=== PATIENT | male | born 1990 | race Caucasian/White ===

== ENCOUNTER 2016-04-23 23:15 | Emergency (ER) | payer OTHER ==
[2016-04-23 23:39] VITALS: O2SAT 98
[2016-04-23] MEDS ORDERED: TORAdol 30 mg Injection IM ONE (23:42)
[2016-04-23] MEDS ORDERED: DECADRON 10MG INJ. IM ONE (23:42)
[2016-04-23] MEDS ORDERED: Norflex 60 MG/2 ML IM ONE (23:42)
[2016-04-23] MEDS ORDERED: Norflex 60 MG/2 ML ONE (23:45)
[2016-04-23] MEDS ORDERED: TORAdol 30 mg Injection ONE (23:45)
[2016-04-23] MEDS ORDERED: DECADRON 10MG INJ. ONE (23:45)
--- NOTE | 2016-04-23 23:49 | ERPHSYRPT ---
- History of Present Illness Time Seen by Provider: 04/23/16 23:37 Source: patient Patient Subjective Stated Complaint: states that he has had increasing trouble with the lower and middle back x 1 week with constant achiness et increasing frequency of spasm that will "shoot down into the legs" - denies bowel or bladder dysfunction Triage Nursing Assessment: ambulatory to treatment area - steady gait - moves all extremities with equal strength. alert/oriented - appropriate affect. skin pwd - no rash/injury appreciated. resps spontaneous - easy - non-labored Physician History: CC: back pain Hx: 25 y/o male patient with hx of back pain chronically. He has one week hx of worsened pain shooting to legs. No N/T/W. No urinary problems. No incontinence. Has hx of prior kidney stones but that seems to have resolved. He formerly saw Dr Egan. He works at [employer]. Not a work related back problem. Pain is sharp and severe with movement. No relieved with prior dose skelaxin at home. Back Pain Location: lumbar spine Severity of Pain-Max: severe Severity of Pain-Current: severe Allergies/Adverse Reactions: No Known Drug Allergies Allergy (Unverified 04/23/16 23:18) Hx Tetanus, Diphtheria Vaccination/Date Given: Yes Hx Influenza Vaccination/Date Given: No Hx Pneumococcal Vaccination/Date Given: No Immunizations Up to Date: Yes - Review of Systems Constitutional: No Fever, No Chills Eyes: No Symptoms Cardiac: No Chest Pain Abdominal/Gastrointestinal: No Abdominal Pain Genitourinary Symptoms: No Dysuria, No Testicle Pain Musculoskeletal: Back Pain Skin: No Rash Neurological: No Headache, No Paralysis, No Parasthesia All Other Systems: Reviewed and Negative - Past Medical History Pertinent Past Medical History: Yes Cardiac History: Hypertension Respiratory History: Asthma Musculoskeletal History: Osteoarthritis Other Medical History: PULMONARY INSUFFICIENCY, ATRIAL SEPTAL DEFECT. Chronic back pain - Past Surgical History Past Surgical History: Yes Other Surgical History: tonsils and adenoids - Social History Smoking Status: Never smoker How long have you smoked: chews Exposure to second hand smoke: No Alcohol Use: Socially Drug Use: none Patient Lives Alone: No Significant Family History: no pertinent family hx - Nursing Vital Signs Temperature: 97.9 F Temperature Source: Oral Pulse Rate: 86 Respiratory Rate: 16 Blood Pressure: 149/42 Pain Intensity: 7 - Physical Exam General Appearance: alert Eye Exam: PERRL/EOMI Ears, Nose, Throat Exam: normal ENT inspection, moist mucous membranes Neck Exam: normal inspection, non-tender, supple Respiratory Exam: normal breath sounds, lungs clear Cardiovascular Exam: regular rate/rhythm, No murmur Gastrointestinal Exam: soft, No tenderness, No distention Male Genetalia Exam: normal genitalia, No testicular tenderness Back Exam: normal inspection, point tenderness (right low lumbar paraspinous) Extremity Exam: normal inspection, normal range of motion Neurologic Exam: alert, oriented x 3, cooperative, sensation nml, other (2+ patellar MSR's are equal), No motor deficits Skin Exam: warm, dry, No rash SpO2 Interpretation: normal SpO2: 98 Oxygen Delivery: Room Air - Course Nursing assessment & vital signs reviewed: Yes - Progress Progress Note: 04/23/16 23:46 IM Toradol/Norflex/Decadron given. Advised follow up. Counseled pt/family regarding: diagnosis, need for follow-up - Departure Time of Disposition: 23:46 Departure Disposition: Home Clinical Impression: Acute exacerbation of chronic low back pain Condition: Stable Critical Care Time: No Referrals: ZARI JAIMES [Primary Care Provider] - DOCTOR,NO FAMILY [NON-STAFF PHY W/O PRIVILEGES] - Instructions: Low Back Pain Additional Instructions: BACK INJURY 1. May apply moist heat frequently for relief of pain. Take care not to burn the skin. Do not use heat for more than 30 minutes at a time. 2. Try to sleep on a firm bed, flat on your back. 3. If no improvement is noticed in 2-3 days, follow up with your family physician. 4. If you notice any numbness, tingling, weakness, or problems with your bowel or bladder, you should call your family physician or return to the emergency department. Rx naproxen. Rx norflex for muscle relaxer. Warm compresses. No driving tonite or while taking norflex. Follow up with family doctor. Prescriptions: Naproxen 1 tab PO BID #20 tablet Orphenadrine Citrate 100 mg [Norflex 100 MG Tablet] 1 tab PO BID #10 tab
[2016-04-24 00:45] VITALS: BP 138/88; PULSE 54
== END 2016-04-24 00:31 | disposition home or self-care (01) ==
LOC: ED 23:15
DX: M54.5 Low back pain (principal); G89.29 Other chronic pain
CPT/HCPCS: 96372; 99283; J1100; J1885; J2360

== ENCOUNTER 2016-09-03 07:18 | Emergency (ER) | payer SELFPAY ==
--- NOTE | 2016-09-03 07:34 | ERPHSYRPT ---
- History of Present Illness Time Seen by Provider: 09/03/16 07:27 Source: patient Exam Limitations: no limitations Patient Subjective Stated Complaint: reports with chronic back pain onset "two weeks ago" - states that he began to have trouble with his "legs giving out on him" and having spasms, which caused him to come in today - denies bowel or bladder involvement Triage Nursing Assessment: wc to treatment area - unsteady/rigid gait to cart - moves all extremities with equal/rigid strength. alert/oriented - grimmacing affet. skin pwd - no rash/injury appreciated. resps non-labored - shallow per pain Physician History: States with long history of chronic back pain for 10 yrs. but noticed increase back pain past 2-3 weeks. States sharp pain in mid/low back and rad to bilat. hips. States increase standing at work with some lifting, but doesn't remember incident of injuring back. No urinary or bowel incontinence. Denies any numbness, tingling or weakness. Taking Ibuprofen 600mg two days. Timing/Duration: week(s) (2-3), intermittent Method of Injury: bending, other (Lifting and standing) Quality: sharp Back Pain Location: T-spine, lumbar spine Back Pain Radiation: buttocks Severity of Pain-Max: moderate Severity of Pain-Current: moderate Modifying Factors: Improves With: immobilization (improves), movement (worsens) Associated Symptoms: lower back pain, muscle spasms, No fever, No chills, No urinary incontinence, No loss of bowel control, No problems urinating, No dizziness, No numbness in legs/feet, No weakness, No tingling in legs/feet Previous symptoms: same symptoms as today Allergies/Adverse Reactions: No Known Drug Allergies Allergy (Unverified 04/23/16 23:18) Hx Tetanus, Diphtheria Vaccination/Date Given: Yes Hx Influenza Vaccination/Date Given: No Hx Pneumococcal Vaccination/Date Given: No Immunizations Up to Date: Yes - Review of Systems Constitutional: No Fever, No Chills Eyes: No Symptoms Ears, Nose, & Throat: No Symptoms Respiratory: No Cough, No Dyspnea Cardiac: No Symptoms, No Chest Pain, No Edema, No Syncope Abdominal/Gastrointestinal: No Symptoms, No Abdominal Pain, No Nausea, No Vomiting, No Diarrhea Genitourinary Symptoms: No Dysuria Musculoskeletal: Back Pain, No Neck Pain, No Injury, No Joint Pain, No Joint Swelling Skin: No Rash Neurological: No Dizziness, No Focal Weakness, No Paralysis, No Parasthesia, No Sensory Changes Psychological: No Symptoms Endocrine: No Symptoms All Other Systems: Reviewed and Negative - Past Medical History Pertinent Past Medical History: Yes Cardiac History: Hypertension Respiratory History: Asthma Musculoskeletal History: Osteoarthritis Other Medical History: chronic back pain - Past Surgical History Past Surgical History: Yes Other Surgical History: tonsils and adenoids - Social History Smoking Status: Never smoker How long have you smoked: chews Exposure to second hand smoke: Yes Alcohol Use: Socially Drug Use: none Patient Lives Alone: No Significant Family History: no pertinent family hx - Nursing Vital Signs Temperature: 98.0 F Temperature Source: Oral Pulse Rate: 84 Respiratory Rate: 14 Pain Intensity: 4 - Physical Exam General Appearance: no apparent distress, alert Eye Exam: PERRL/EOMI, eyes nml inspection Neck Exam: normal inspection, non-tender, supple, full range of motion, No meningismus, No midline tenderness Respiratory Exam: normal breath sounds, lungs clear, No respiratory distress Cardiovascular Exam: regular rate/rhythm, normal heart sounds Gastrointestinal Exam: soft, No tenderness, No mass Back Exam: vertebral tenderness (mid thoracic and lumbar), decreased range of motion, muscle spasm (mid thoracic and lumbar), point tenderness (mid thoracic and lumbar) Extremity Exam: normal inspection, normal range of motion, No calf tenderness, No pedal edema Peripheral Pulses: dorsalis-pedis (R): 2+, dorsalis-pedis (L): 2+ Neurologic Exam: alert, oriented x 3, cooperative, miniature set builder II-XII nml as tested, normal mood/affect, sensation nml, No motor deficits, No sensory deficit Skin Exam: normal color, warm, dry, No rash SpO2: 95 - Course Nursing assessment & vital signs reviewed: Yes - Progress Progress: improved Progress Note: 09/03/16 07:38 Pt. given Toradol with some relief of symptoms Counseled pt/family regarding: diagnosis - Departure Time of Disposition: 07:38 Departure Disposition: Home Clinical Impression: Back muscle spasm Condition: Stable Critical Care Time: No Instructions: Low Back Pain Additional Instructions: Rest, no lifting, bending or prolonged sitting/standing, Motrin 800mg every 8 hrs with food to decrease pain RX: Flexeril Return for worse back pain, numbness, tingling, weakness or any problems. Forms: Work/School Release Form Prescriptions: Cyclobenzaprine HCl [Flexeril] 10 mg PO Q8H PRN PRN #0 tablet PRN Reason: Muscle Spasms
[2016-09-03] MEDS ORDERED: TORAdol 30 mg Injection IM ONE (07:43)
[2016-09-03] MEDS ORDERED: TORAdol 30 mg Injection ONE (07:45)
[2016-09-03 08:10] VITALS: BP 101/67; PULSE 62; O2SAT 96
== END 2016-09-03 08:10 | disposition home or self-care (01) ==
LOC: ED 07:18
DX: M62.830 Muscle spasm of back (principal); M54.6 Pain in thoracic spine; M54.5 Low back pain
CPT/HCPCS: 96372; 99284; J1885

== ENCOUNTER 2017-08-26 23:46 | Emergency (ER) | payer OTHER, SELFPAY ==
[2017-08-27] MEDS ORDERED: Sodium Chloride 0.9% 1000 ML 1,000 ML IV STA (00:27)
[2017-08-27] MEDS ORDERED: TORAdol 30 mg Injection IV ONE (00:27)
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
[2017-08-27] MEDS ORDERED: TORAdol 30 mg Injection ONE (00:34)
[2017-08-27] MEDS ORDERED: Sodium Chloride 0.9% 1000 ML 1,000 ML ONE (00:34)
[2017-08-27 00:36] LABS: BASOPHIL % 0.2 % (0.0-0.4); Basophil (Absolute #) 0.02 (0-0.4); Eosinophil % 1.5 % (0.00-5.0); Eosinophil (Absolute #) 0.13 (0-0.5); Granulocytes % 59.3 % (36.0-66.0); Hemoglobin 14.5 gm/dl (12.5-18.0); Lymphocyte (Absolute #) 2.51 (1.0-4.6); Lymphocytes % 28.7 % (24.0-44.0); Mean Cell Volume 84.5 fl (78-100); Mean Corpuscular Hemoglobin 29.2 pg (26-32); Mean Corpuscular Hgb Concent. 34.5 g/dl (32-36); Monocytes % 10.3 % (0.0-12.0); Platelet Count 273 K/mm3 (150-450); Red Blood Count 4.97 M/mm3 (4.1-5.6); Red Cell Distribution Width 13.4 % (11.5-14.0); White Blood Count 8.8 K/mm3 (4.0-10.5)
[2017-08-27 00:38] LABS: Appearance CLEAR (CLEAR); Bilirubin NEGATIVE (NEGATIVE); Blood NEGATIVE Ery/ul (0-5); Glucose NEGATIVE (NEGATIVE); Ketones NEGATIVE (NEGATIVE); Leukocyte Esterase NEGATIVE (NEGATIVE); Nitrite NEGATIVE (NEGATIVE); Protein,Urine Dip NEGATIVE (Negative); Specific Gravity 1.005 (1.005-1.025); Urobilinogen 1 mg/dL (0-1)
[2017-08-27 00:42] LABS: ALBUMIN 4.2 g/dL (3.5-5.0); ALKALINE PHOSPHATASE 68 U/L (38-126); ANION GAP 13.8 MEQ/L (5-15); BLOOD UREA NITROGEN 10 mg/dL (9-20); CHLORIDE 102 mmol/L (98-107); Calcium 9.6 mg/dL (8.4-10.2); Carbon Dioxide 29 mmol/L (22-30); Creatinine 1 0.86 mg/dL (0.66-1.25); Glucose 78 mg/dL (74-106); LIPASE 64 U/L (23-300); SGOT/AST 28 U/L (17-59); SGPT/ALT 30 U/L (0-50); SODIUM 141 mmol/L (137-145); Total Protein 7.1 g/dL (6.3-8.2)
[2017-08-27 01:54] VITALS: BP 140/66; PULSE 74; O2SAT 99
--- NOTE | 2017-08-27 08:57 | XRAY ---
Indication: Right flank pain and hematuria. History of stones. Multiple contiguous axial images obtained through the abdomen and pelvis without contrast as ordered. Comparison: April 10, 2015. Lung bases remain clear. Heart is not enlarged. Stomach is distended with food. Noncontrasted stomach and bowel loops appear nonobstructed. Mild diffuse scattered colonic fecal debris throughout. Normal appendix. No free fluid/air. Gallbladder contracted without gallstones. Again scattered small subcentimeter mesenteric nodes possibly adenitis. Remaining liver, pancreas, spleen, adrenal glands, kidneys, ureters, bladder, and aorta appear unremarkable for noncontrast exam. Osseous structures intact again with mild degenerative changes. No ventral or inguinal hernias. Impression: 1. Mild fecal stasis without obstruction. 2. Stable small mesenteric lymph nodes possibly adenitis. 3. No new/acute intra-abdominal/pelvic abnormalities on this noncontrast exam. Comment: Preliminary interpretation was made by [facility]. No critical discrepancy. CT DI 22.85
== END 2017-08-27 01:50 | disposition home or self-care (01) ==
LOC: ED 23:46
DX: R10.31 Right lower quadrant pain (principal); R30.0 Dysuria; Z87.442 Personal history of urinary calculi
CPT/HCPCS: 36000; 36415; 74176; 80053; 81002; 83605; 83690; 85025; 96360; 96374; 99284; J1885

== ENCOUNTER 2017-10-07 03:28 | Emergency (ER) | payer OTHER ==
[2017-10-07 03:44] VITALS: BP 129/69; PULSE 82; O2SAT 97
[2017-10-07] MEDS ORDERED: BACIGUENT PACKET TP ONE (03:53)
[2017-10-07] MEDS ORDERED: BACIGUENT PACKET ONE (03:55)
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
== END 2017-10-07 04:12 | disposition home or self-care (01) ==
LOC: ED 03:28
DX: B07.9 Viral wart, unspecified (principal)
CPT/HCPCS: 99283; A9270-GY

== ENCOUNTER 2018-04-04 18:40 | Emergency (ER) | payer OTHER ==
[2018-04-04 18:57] VITALS: O2SAT 99
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
[2018-04-04] MEDS ORDERED: Tessalon Perles 100 MG PO STA (20:14)
[2018-04-04] MEDS ORDERED: Rocephin 1000 MG INJ IM ONE (20:55)
[2018-04-04] MEDS ORDERED: DECADRON 10MG INJ. IM ONE (20:55)
[2018-04-04] MEDS ORDERED: Tessalon Perles 100 MG PO PRN (20:58)
[2018-04-04] MEDS ORDERED: Rocephin 1000 MG INJ ONE (21:08)
[2018-04-04] MEDS ORDERED: DECADRON 10MG INJ. ONE (21:08)
[2018-04-04 21:34] VITALS: BP 129/61; PULSE 61
--- NOTE | 2018-04-05 08:41 | XRAY ---
Indication: Cough and fever. Comparison: March 01, 2013. PA/lateral chest again demonstrates normal heart and lungs. Bony thorax intact again with flowing spinal osteophytes. No new/acute findings.
== END 2018-04-04 21:30 | disposition home or self-care (01) ==
LOC: ED 18:40
DX: J40 Bronchitis, not specified as acute or chronic (principal)
CPT/HCPCS: 71046; 96372; 99284; J0696; J1100; A9270-GY

== ENCOUNTER 2024-05-02 21:24 | Emergency (ER) | payer OTHER ==
[2024-05-02 21:35] VITALS: RESP 18; TEMP 97.7
[2024-05-02 22:07] LABS: Appearance Clear (Clear); Bacteria None Seen /HPF (None Seen); Bilirubin Negative (Negative); Blood Negative (Negative); Epithelial Cells None Seen /HPF (None Seen); Glucose, Urine Negative (Negative); Hyaline Casts NONE SEEN /LPF (0-2); Ketones Negative (Negative); Leukocyte Esterase Negative (Negative); Nitrite Negative (Negative); Protein,Urine Dip Negative (Negative); RBC 0-2 /HPF (0-5); WBC 0-2 /HPF (0-5)
[2024-05-02 22:23] LABS: Absolute Neutrophil Ct (ANC) 7.13 x10^3/uL (1.78-5.38); BASOPHIL % 0.3 % (0.2-1.2); Basophil (Absolute #) 0.03 x10^3/uL (0.01-0.08); Eosinophil % 0.6 % (0.8-7.0); Eosinophil (Absolute #) 0.07 x10^3/uL (0.04-0.54); Hematocrit 49.4 % (40.1-51.0); Hemoglobin 16.8 g/dL (13.7-17.5); IMMATURE GRAN # 0.03 x10^3u/L (0.001-0.031); IMMATURE GRAN % 0.3 % (0.001-0.429); Lymphocyte (Absolute #) 2.88 x10^3/uL (1.32-3.57); Lymphocytes % 26.3 % (21.8-53.1); Mean Cell Volume 86.5 fL (79.0-92.2); Mean Corpuscular Hemoglobin 29.4 pg (25.7-32.2); Mean Platelet Volume 9.5 fL (9.4-12.4); Monocyte (Absolute #) 0.83 x10^3/uL (0.30-0.82); Monocytes % 7.6 % (5.3-12.2); Neutrophil % 64.9 % (34.0-67.9); Platelet Count 316 x10^3/uL (163-337); Red Blood Count 5.71 x10^6/uL (4.63-6.08); Red Cell Distribution Width 13.5 % (11.6-14.4)
[2024-05-02] MEDS ORDERED: TORAdol 30 mg Injection ONE (22:24)
[2024-05-02] MEDS ORDERED: Sodium Chloride 0.9% 1000 ML 1,000 ML ONE (22:24)
[2024-05-02 22:36] LABS: ALBUMIN 4.6 g/dL (3.5-5.0); ANION GAP 12.8 MEQ/L (5-15); BILIRUBIN,TOTAL 0.5 mg/dL (0.2-1.3); Calcium 9.5 mg/dL (8.4-10.2); Creatinine 1 0.9 mg/dL (0.66-1.25); EST GLOMERULAR FILTRATION RATE 114.9 ML/MIN; Potassium 4.3 mmol/L (3.5-5.1); Total Protein 7.4 g/dL (6.3-8.2)
[2024-05-02] MEDS: Sodium Chloride 0.9% 1000 ML 1,000 ML IV SCH (22:36)
[2024-05-02] MEDS: TORAdol 30 mg Injection IV ONE (22:37)
--- NOTE | 2024-05-03 00:03 | XRAY ---
CLINICAL HISTORY: pain COMPARISON: 08/26/2017. TECHNIQUE: Contiguous axial images were obtained from the level of the diaphragm to the pubic symphysis without intravenous or oral contrast. Coronal and sagittal reconstructions were likewise performed and indicated to increase the sensitivity for detecting clinically relevant pathology. CT scan was performed according to ALARA (as low as reasonably achievable). FINDINGS: The visualized lung bases are clear. Evaluation of the abdominal and pelvic visceral organs is limited without intravenous contrast. Liver is enlarged measuring 18 cm in craniocaudal extent. Hepatic steatosis is noted with few areas of focal fat sparing. The gallbladder is present. The unenhanced spleen is grossly unremarkable. The unenhanced pancreas is grossly unremarkable. The adrenal glands are grossly unremarkable. The kidneys are normal in size. There is no hydronephrosis. No perinephric stranding is seen. The ureters are normal in caliber. No evidence of focal or diffuse bowel wall thickening or evidence of bowel obstruction is seen. The urinary bladder is normal in contour. Small omental fat containing umbilical hernia is noted. Small fat containing bilateral inguinal hernias are noted, larger on right side. No adenopathy or fluid collections are seen. Pelvic viscera are grossly unremarkable. The aorta is normal in caliber. No aggressive appearing osseous lesions are identified. Early osteoarthritic changes are noted involving bilateral hip joints. IMPRESSION: 1. Hepatomegaly measuring 18 cm. 2. Most of the liver parenchyma shows steatosis with focal areas of fat sparing. 3. Small omental fat containing umbilical hernia is noted. 4. Small fat containing bilateral inguinal hernias are noted, larger on right side. Electronically Signed by: Salvatore Melgoza MD. (05/02/2024 23:58:44 EST)
[2024-05-03 00:04] VITALS: O2SAT 95
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
[2024-05-03 00:53] VITALS: BP 114/64; PULSE 65
== END 2024-05-03 00:56 | disposition home or self-care (01) ==
LOC: ED 21:24
DX: K40.20 Bilateral inguinal hernia, without obstruction or gangrene, not specified as recurrent (principal); K42.9 Umbilical hernia without obstruction or gangrene; K76.0 Fatty (change of) liver, not elsewhere classified; R16.0 Hepatomegaly, not elsewhere classified; R10.30 Lower abdominal pain, unspecified; I10 Essential (primary) hypertension; Z79.899 Other long term (current) drug therapy
CPT/HCPCS: 36415; 74176; 80053; 81001; 83690; 84484; 85025; 96374; 99284; J1885

== ENCOUNTER 2024-06-10 03:32 | Emergency (ER) | payer OTHER ==
[2024-06-10] MEDS ORDERED: PROVENTIL 2.5 MG/3 ML NEB IH ONE (03:54)
[2024-06-10] MEDS: PROVENTIL 2.5 MG/3 ML NEB IH ONE (03:56)
[2024-06-10 03:57] VITALS: TEMP 97.6
[2024-06-10 03:59] VITALS: RESP 18
[2024-06-10 04:35] LABS: INFLUENZA B NEGATIVE (NEGATIVE); RESPIRATORY SYNCTIAL VIRUS NEGATIVE (NEGATIVE); SARS-CoV-2 Xpert Express NEGATIVE (NEGATIVE)
[2024-06-10 04:46] LABS: INFLUENZA A POSITIVE (NEGATIVE)
[2024-06-10 05:05] VITALS: BP 141/76; PULSE 68
[2024-06-10] MEDS ORDERED: Zithromax 250 MG TABLET ONE (05:07)
[2024-06-10] MEDS ORDERED: HYDROCODONE-ACETAMIN 2.5-108/5 ML SOLUTION ONE (05:08)
[2024-06-10] MEDS: HYDROCODONE-ACETAMIN 2.5-108/5 ML SOLUTION PO SCH (05:09)
[2024-06-10] MEDS: Zithromax 250 MG TABLET PO ONE (05:09)
[2024-06-10 05:11] VITALS: O2SAT 99
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
--- NOTE | 2024-06-10 08:29 | XRAY ---
Indication: Cough. Comparison: April 04, 2018 Portable chest again demonstrates normal heart and lungs. Bony thorax intact again with mild degenerative changes. No new/acute findings.
== END 2024-06-10 05:21 | disposition home or self-care (01) ==
LOC: ED 03:32
DX: J10.1 Influenza due to other identified influenza virus with other respiratory manifestations (principal); J20.9 Acute bronchitis, unspecified; R05.1 Acute cough; I10 Essential (primary) hypertension; Z79.52 Long term (current) use of systemic steroids; Z79.899 Other long term (current) drug therapy
CPT/HCPCS: 0241U; 71045; 94640; 99284; 99283; J7609; A9270-GY